=== PATIENT | female | born 1940 | race Caucasian/White ===

== ENCOUNTER 2016-09-27 06:16 | Inpatient (IN) | payer OTHER ==
[~2016-09-27] VITALS: Ht 154.9 cm; Wt 57.2 kg
[~2016-09-27 06:16] MED LIST: ATIVAN0.5 MG PO; CYCLOBENZAPRINE10 M1 PO; DELTASONE20 MG PO
--- NOTE | 2016-09-27 10:06 | Operative Report ---
Operative/Inv Procedure Report Surgery Date: 09/27/16 Name of Procedure: Right total hip arthroplasty Pre-Operative Diagnosis: Primary right hip osteoarthritis Protrusio right hip Post-Operative Diagnosis: Same Estimated Blood Loss: 50ml to 100ml Surgeon/Claim Professional: FARNAZ HINKLE,Christofer JACKSON Anesthesia: general endotracheal tube Implants: [place] secure fit size 7 femur with a 132 neck angle 52 acetabulum [place] 36-2.5 femoral head metal Drains: None Specimens: Femoral head and acetabular reamings Microbiology: Urine Complications: None Condition: Stable Operative Indication: Patient is a 76-year-old woman with worsening right hip and right lower extremity pain. By exam and x-rays, patient had severe osteoarthritis of her right hip but also severe osteoarthritis of the right knee. Patient did have some overlapping symptoms. Patient wished to proceed with total hip arthroplasty after discussion. Patient understands that there may be need for a right total knee arthroplasty in the future if she does not experience enough relief of her referred pain from her right total hip arthroplasty. We discussed risks, benefits and expectations of surgical procedure including but not limited to persistent hip pain, need for subsequent surgery, infection, DVT, dislocation , injury to blood vessel or nerve, anesthesia risks, leg length discrepancy. Patient wished to proceed with total hip arthroplasty Operative/Procedure Note Note: Patient was brought to the operating room and transferred to the operating table. Once under appropriate anesthesia the patient was placed in the left lateral decubitus position with right side up. All bony prominences well- padded. Axillary roll was placed. The right lower extremity was prepped and draped in standard fashion. Preoperative IV antibiotics were given prophylactically. A standard lateral incision was made for anticipated superior approach to the hip. The incision was taken down sharply to the underlying fascia. The fascia was incised in line with the skin incision. The hip was internally rotated. The piriformis was located and dissected off the posterior capsule and reflected. The interval between the gluteus minimus tendon and the superior capsule was identified and a retractor was placed in this interval. An inferior retractor was placed as well. A central portion of the posterior capsule was incised and reflected posteriorly. Inferior and superior portions were excised. Hip was dislocated. There was severe end-stage degenerative changes and eburnated bone of the right femoral head. The femoral neck cut was made based on preoperative templating and intraoperative measurements. I was able to visualize the acetabulum. There was severe degenerative changes of the acetabular surface as well. 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 Osteophytes were excised. Remnants of the degenerative labrum were excised anteriorly. There was no remaining labrum posteriorly. I then prepared the acetabular fossa with reamers starting with a size 46 up to a size 51 for anticipated insertion of a size 52 acetabulum. After the last reamer was used I trialed a size 50. I was satisfied with the circumferential reaming. I then impacted the definitive size 52 acetabulum with excellent scratch fit. I placed 2 screws in the safe zone in standard fashion. Copious irrigation followed I then impacted the definitive liner for this 36 [place] femoral head. The locking mechanism was confirmed. I then turned my attention to the femur. The right lower external he was internally rotated 90 and flexed about 60. Retractors were placed and then I did lateralize my insertion site with a box osteotome. Hand reamers up to a size 7. Broached to a size 7. I did a trial with a size [address] with the 127 and 132 neck angle. Patient did have a preoperative flexion contracture and her anatomy match the 132 neck angle more properly. I did use a minus 2.5 femoral neck. I was satisfied with the stability with all the trials. I elected to use the 132 neck degrees neck angle and the -2.5 femoral head. I removed all trial components. Copious irrigation of the femoral canal followed. I then placed the definitive size 7 secure fit femoral stem in place with the 132 neck angle. There was excellent scratch fit. I was satisfied with the 36 mm -2.5 femoral head. The trunnion was dried and I placed the definitive femoral head in place. The locking mechanism was confirmed. I reduced the hip. I was satisfied with the stability in all planes. Rastafari of the length. No evidence of posterior stability with simultaneous internal rotation adduction and flexion to greater than 90. No evidence of anterior instability with simultaneous extension and external rotation. Copious irrigation followed and copious irrigation followed every level of closure. The posterior capsule and piriformis were repaired. The fascia was closed with interrupted #1 Vicryl suture. Subcutaneous tissue was closed with 2-0 Vicryl in 2 layers and skin was closed with a ramesh. Appropriate dressings were applied and patient was awakened and taken the recovery room in good condition. Blood loss was approximately 100 mL. No intraoperative complications Discharge Disposition: PACU
--- NOTE | 2016-09-27 10:38 | RADIOLOGY REPORT ---
EXAMINATION: XR HIP, RIGHT CLINICAL INFORMATION: Status post right total hip arthroplasty. COMPARISON: None TECHNIQUE: A single portable AP view of the right hip is acquired. FINDINGS: Right total hip arthroplasty hardware is in place with a single acetabular fixation screw. The hardware is in satisfactory position. There is no evidence of periprosthetic lucencies to suggest fracture. Expected postsurgical changes with soft tissue edema and soft tissue air are seen. Cutaneous ramesh are noted projecting over the right lateral gluteal region. IMPRESSION: Expected postsurgical changes of right total hip replacement; the hardware is in satisfactory position.
[2016-09-27 12:36] VITALS: BP 11/58
--- NOTE | 2016-09-27 12:46 | Cons- Medical ---
ROSSY KING 09/27/16 1239: General Information and HPI Consulting Request Date of Consult: 09/27/16 Requested By: FARNAZ HINKLE,MANUEL Reason for Consult: Follow-up medical issues Source of Information: patient, family Exam Limitations: no limitations History of Present Illness: She is 76-year-old woman with past medical history of Powell's esophagus, diverticulosis, hemorrhoids, osteoarthritis, hypertension not on any antihypertensive, hyperlipidemia, anxiety and urinary incontinence with recurrent UTIs in past. She is status post right total hip arthroplasty by Dr. Mccurdy today. She is hard of hearing and most of history was obtained from her . Postoperatively she is feeling dizzy and complaining of mild pain in her right hip but denies any nausea, chest pain or discomfort, breathing difficulty, abdominal pain. Her preop blood work was done on 09/06/2069. CBC, BEP is normal except UA looks infected. According to she was prescribed with ciprofloxacin by PCP, Dr. Carroll, that she took it only for 2-3 days because her symptoms resolved. She is allergic to aspirin and NSAIDs. There is no history of smoking, alcohol or illicit drug use. She has 2 kids. She is retired. Lives with in [place]. Independent for activities of daily living. Allergies/Medications Allergies: Coded Allergies: aspirin (PASSES OUT 09/20/16) Home Med List: Lorazepam (Ativan) 0.5 MG TAB 1 TAB PO TID ANXIETY/SLEEP (Reported) Current Medications: Current Medications Sig/Leeanne Start time Last Medication Dose Route Stop Time Status Admin Al Hydroxide/Mg 30 ML Q6P PRN 09/27 1130 AC Hydroxide PO Apixaban 2.5 MG BID 09/28 1000 AC PO Dextrose/Lactated 1,000 ML Q13H 09/27 1130 AC Ringer's IV Docusate Sodium 100 MG DAILY NEEDED PRN 09/27 1130 AC PO Lorazepam 0.5 MG DAILY PRN 09/27 1000 AC PO 10/04 0959 Morphine Sulfate 2 MG Q3P PRN 09/27 1130 AC IV Morphine Sulfate 4 MG Q3P PRN 09/27 1130 AC IV Ondansetron HCl 4 MG Q6P PRN 09/27 1130 AC IV Oxycodone/ 1 TAB Q4P PRN 09/27 1130 AC Acetaminophen PO Oxycodone/ 2 TAB Q4P PRN 09/27 1130 AC Acetaminophen PO Polyethylene Glycol 17 GM DAILY NEEDED PRN 09/27 1130 AC PO Senna/Docusate Sodium 2 TAB AT BEDTIME NEED.. 09/27 1130 AC PO Vancomycin HCl 1,000 MG ONCE ONE 09/27 1900 AC Dextrose/Water 250 ML IV 09/27 1959 Vancomycin HCl 1,000 MG ONCE 09/27 0000 DC Sodium Chloride 250 ML IV 09/27 2359 Review of Systems Review of Systems Constitutional: Reports: see HPI. Past History Medical History Blood Transfusion Hx: No Neurological: migraine EENT: hearing loss, CATERACTS Cardiovascular: NONE Respiratory: NONE Gastrointestinal: NONE Hepatic: NONE Renal: NONE Musculoskeletal: osteoarthritis Psychiatric: anxiety Endocrine: NONE Blood Disorders: NONE Cancer(s): NONE FINANCIAL MANAGER/Reproductive: NONE Surgical History Surgical History: hernia repair-inguinal, hysterectomy, knee replacement (left), tubal ligation, bladder suspension, right rotator cuff repair Psychosocial History Smoking Status: Never Smoked Functional Ability ADLs Independent: dressing, eating, toileting, bathing. Ambulation: independent IADLs Independent: shopping, housework, finances, food prep, telephone, medication admin. Needs Assist: transportation. Employment History Employment: Retired Exam & Diagnostic Data Last 24 Hrs of Vital Signs/I&O Vital Signs Date Time Temp Pulse Resp B/P Pulse O2 O2 Flow FiO2 Ox Delivery Rate 09/27 1236 97.8 60 20 11/ 92 Room Air Intake & Output 09/27 1600 09/27 0800 09/27 0000 Intake Total Output Total Balance Patient 126 lb Weight Physical Exam General Appearance: no apparent distress, alert, awake, comfortable Head: normal appearance Eyes: Bilateral: normal appearance. Neck: supple Respiratory: normal breath sounds, chest non-tender, no respiratory distress, lungs clear Cardiovascular: regular rate/rhythm Peripheral Pulses: 2+ tibialis posterior (R), 2+ tibialis posterior (L), 2+ dorsalis pedis (R), 2+ dorsalis pedis (L) Gastrointestinal: normal bowel sounds, soft, non-tender Back: normal inspection Extremities: no edema, right hip bandage intact. lower ext sensations intact. pulses palpable Last 24 Hrs of Labs/Tim: No blood work was done in this 24 hours Assessment/Plan Assessment/Plan She is 76-year-old woman with past medical history of Powell's esophagus, diverticulosis, hemorrhoids, osteoarthritis, hypertension not on any antihypertensive, hyperlipidemia, anxiety and urinary incontinence with recurrent UTIs in past. She is status post right total hip arthroplasty by Dr. Mccurdy today. She was given vancomycin 1 preoperatively. Her vitals are stable. Temperature is 97.8, heart rate 60, blood pressure 110/ 58 and oxygen saturation 92% on room air. She has been started on pain medications, bowel regimen and DVT prophylaxis. Recommendations Monitor her vitals closely. Please repeat all her labs including CBC, BEP and UA. Urine culture for today is already pending. Continue Ativan for anxiety. Continue her pain management, bowel regimen and DVT prophylaxis. Physical therapy evaluation and treatment. has already booked her spot at [facility] after discharge. She is full code. POA is . Consult Acknowledgment - Thank you for your consult request. KODAK LUQUE MD 09/27/16 5563: Assessment/Plan Consult Acknowledgment - Thank you for your consult request. Attending MD Review Statement Attending Statement Attending MD Statement: examined this patient, discuss w/resident/PA/YOUTH PASTOR, agreed w/resident/PA/YOUTH PASTOR, discussed with family, reviewed EMR data (avail), discussed with nursing, amended to note Attending Assessment/Plan: The patient is a 76 yo female with h/o Powell's esophagus, HTN (not on meds), HL, anxiety, and recurrent UTI's in the past who was admitted to [facility] to the orthopedic service after elective right hip arthroplasty for osteoarthritis. Pre-operative evaluation indicated some pyuria and the patient was empirically treated with Cipro x 3 days by PCP (no culture in system). She has a h/of prior knee arthroplasty. At the time of my exam the patient was post op and complained of some mild hip pain (being treated). She denied fever, dyspnea, chest pain, abdominal pain, etc. Physical Exam: VS: T 97, P 60, BP 114/58, R 20, PO 92% RA HEENT: eyes- PERRLA, EOMI camilla- moist mucosa Neck: no bruits or JVD Chest: clear Cor: RRR, nl S1, S2 w/o murm Abd: BS+, soft, NT Ext: dressing on right hip, no edema, pulses 2+ Neuro: alert & oriented x 3, non-focal exam Labs/Tests- as above Impression/Plan: #H/O UTI- patient had pyuria preop with some mild dysuria. Was treated with 3 days of oral Cipro and symptoms resolved. Received 1 dose of IV Vanco preop as per hip arthroplasty protocol. Plan: Agree with re-check U/A & C&S. #S/P Right Hip Artrhroplasty- for OA. Doing well clinically. Plan: As per orthopedics. Eliquis being used for DVT prophylaxis. #H/O HTN- was not on medication. BP good at present. Plan: Will follow BP. #Anxiety- on Lorazepam prn. Plan: Continue Lorazepam prn.
--- NOTE | 2016-09-27 13:08 | PN- Orthopedic ---
Subjective Subjective: Awake, seems slightly confused about where she is but is aware of surgery and oriented to person. No specific complaints, ambulated already with PT - wbat - with a rolling walker Pain controlled Objective Vital Signs and I&Os Vital Signs Date Time Temp Pulse Resp B/P Pulse O2 O2 Flow FiO2 Ox Delivery Rate 09/27 1236 97.8 60 20 11/58 92 Room Air Intake & Output 09/27 1600 09/27 0800 09/27 0000 09/26 1600 09/26 0800 09/26 0000 Intake Total Output Total Balance Patient 126 lb Weight Physical Exam: afebrile, vss banerjee output - good General: oriented to person and time, ?baseline, pt was a poor historian pre op and required to answer questions Chest: clear anteriorly bilaterally, RRR Abd: soft, good bs Ext: warm, no edema, no calf tenderness, positive sensate Wound: dressed, dry Assessment/Plan Assessment/Plan 76 yo female s/p R THR PT - wbat eliquis for dvt ppx home meds restarted Hospitalist consulted - I spoke to resident. Recommendations appreciated. Will fu labs in am Pt had pre op UTI for which she was being treated - now has had vanco for andres op. Will follow up urine culture which was performed due to banerjee placement. Plan for rehab 2-3 days Core Measures/Miscellaneous Banerjee Catheter Date In: 09/27/16 Still Needed? Yes (24 hrs post op) Venous Thromboembolism VTE Risk Factors: Age > 40, Surgery VTE Contraindications: No Contraindications VTE Prophylaxis Ordered Inpt: Mech & Pharm VTE Diagnosis: No Beta Elisa Is Beta Elisa a Home Med? No Antibiotics Is Patient on Antibiotics? Yes If Yes: prophylaxis (24 hrs post op)
[2016-09-27 14:27] VITALS: BP 114/70
[2016-09-27 16:07] VITALS: BP 100/60
[2016-09-27 18:21] VITALS: BP 122/80
[2016-09-27 22:12] VITALS: BP 92/60
[2016-09-28 02:13] VITALS: BP 120/68
[2016-09-28 06:44] VITALS: BP 114/68
--- NOTE | 2016-09-28 08:54 | PN- Orthopedic ---
Subjective Subjective: Has multiple complaints. "The water tastes strange", "my throat hurts", "my head hurts", "my hip hurts", "my knee hurts", "my foot hurts". Each report has a story. Tolerating coffee. Has already requested that her banerjee stay in until she gets out of bed with PT this morning. Currently reporting some dizziness while resting in bed. No shortness of breath. No chest pains. She requested her athrombic pumps to be removed. Objective Vital Signs and I&Os Vital Signs Date Time Temp Pulse Resp B/P Pulse O2 O2 Flow FiO2 Ox Delivery Rate 09/28 0644 98.2 71 18 114/68 95 Room Air 09/28 0213 98.5 87 18 120/68 96 Room Air 09/27 2212 98.3 78 20 92/60 96 Room Air 09/27 1821 98.3 66 20 122/80 97 Room Air 09/27 1607 97.4 58 20 100/60 97 Room Air / 1427 98.2 56 18 114/70 95 Room Air 09/27 1236 97.8 60 20 11/58 92 Room Air Intake & Output 09/28 1600 02/ 0800 02/ 0000 / 1600 09/27 0800 02/ 0000 Intake Total 650 700 705 Output Total 900 200 400 Balance -250 500 305 Intake, IV 600 300 225 Intake, Oral 50 400 480 Number 0 Bowel Movements Output, Urine 900 200 400 Patient 126 lb Weight Physical Exam: General - alert & oriented. comfortable. no acute distress. Lungs - clear bilaterally. no w/r/r. Cardiac - s1s2. reg. Abdomen - soft. nontender. - banerjee draining clear, yellow urine. Extremities - warm bilaterally. right hip dressing c/d/i. hip pillow in place. nvi. calves soft and nontender b/l. Assessment/Plan Assessment/Plan This 76 year old white female with past medical history of Powell's esophagus, diverticulosis, hemorrhoids, osteoarthritis, hypertension not on any antihypertensive, hyperlipidemia, anxiety and urinary incontinence with recurrent UTIs and remote hx UTI is POD#1 s/p R THR advance diet as tolerated. d/c iv fluids pain control as ordered dressing change tomorrow, POD#2 PT - wbat eliquis for dvt ppx home meds restarted f/u u/a and urine cx. d/c banerjee catheter this morning andres-operative antibiotics complete f/u hospitalist recommendations d/c planning for str will d/w Core Measures/Miscellaneous Banerjee Catheter Date In: 09/27/16 Venous Thromboembolism VTE Risk Factors: Age > 40, Surgery VTE Contraindications: No Contraindications VTE Prophylaxis Ordered Inpt: Mech & Pharm VTE Diagnosis: No Beta Elisa Is Beta Elisa a Home Med? No Antibiotics Is Patient on Antibiotics? Yes If Yes: prophylaxis (24 hrs post op)
[2016-09-28 09:13] LABS: ABSOLUTE BASOPHIL COUNT 0 /CUMM (0.0-0.2); ABSOLUTE EOSINOPHIL COUNT 0 /CUMM (0.0-0.7); ABSOLUTE GRANULOCYTE CT 7.4 /CUMM (1.4-6.5); ABSOLUTE LYMPH COUNT 1.4 /CUMM (1.2-3.4); ABSOLUTE MONOCYTE COUNT 0.7 /CUMM (0.10-0.60); BASOPHIL % 0.1 % (0.0-2.0); EOSINOPHIL % 0.1 % (0-5); GRANULOCYTE % 77.2 % (42.2-75.2); HEMATOCRIT 32.5 % (37-47); MEAN CORPUSCULAR HGB 30.8 PG (27.0-31.0); MEAN CORPUSCULAR HGB CONC 33.3 G/DL (33.0-37.0); MEAN CORPUSCULAR VOLUME 92.6 FL (81.0-99.0); MEAN PLATELET VOLUME 8.3 FL (7.4-10.4); PLATELET COUNT 180 /CUMM (130-400); RBC DISTRIBUTION WIDTH 13.9 % (11.5-14.5); WHITE BLOOD CELL COUNT 9.6 /CUMM (4.8-10.8)
[2016-09-28 10:10] VITALS: BP 120/70
--- NOTE | 2016-09-28 10:46 | PN- Medicine Consult ---
ROSSY KING 09/28/16 1046: Assessment/Plan Assessment/Plan Assessment: She is 76-year-old woman with past medical history of Powell's esophagus, diverticulosis, hemorrhoids, osteoarthritis, hypertension not on any antihypertensive, hyperlipidemia, anxiety and urinary incontinence with recurrent UTIs in past. She is status post right total hip arthroplasty by Dr. Mccurdy. Problem list 1. Status post right total hip arthroplasty. Postop day #1 2. Acute surgical blood loss anemia. H&H 10.8/32.5 today. H&H was 15.1/45.7 preoperatively on September 06. No signs of active bleeding. no hematoma at site of surgery. most likely postoperatively. 3. History of recurrent UTIs. Chicas catheter has been removed this morning. UA is showing urine WBCs 5-10 with negative urine leukocyte esterase and nitrite. Urine culture no growth to date. 4. Constipation Recommendations Continue surgical management. Check CBC tomorrow morning. Follow off antibiotics. Continue pain management and bowel regimen. Continue DVT prophylaxis with Eliquis. Discharge plan to [facility]. Continue physical therapy. Plan: as above Subjective Subjective: No overnight events. This morning patient is alert, awake and oriented. She is hemodynamically stable. She is complaining of generalized pain and mostly in her right hip. She is also complaining of pain in her throat. Denies any cough , breathing difficulty, chest pain or discomfort. She has been seen by physical therapy and working with them. Reports constipation. Eating drinking well. Review of Systems Constitutional: Reports: see HPI. Objective Last 24 Hrs of Vital Signs/I&O Vital Signs Date Time Temp Pulse Resp B/P Pulse O2 O2 Flow FiO2 Ox Delivery Rate 09/28 1010 98.0 87 18 120/70 96 Room Air 09/28 0644 98.2 71 18 114/68 95 Room Air 09/28 0213 98.5 87 18 120/68 96 Room Air 09/27 2212 98.3 78 20 92/60 96 Room Air 09/27 1821 98.3 66 20 122/80 97 Room Air 09/27 1607 97.4 58 20 100/60 97 Room Air 09/27 1427 98.2 56 18 114/70 95 Room Air 09/27 1236 97.8 60 20 11/58 92 Room Air Intake & Output 09/28 1600 09/28 0800 09/28 0000 Intake Total 650 700 Output Total 900 200 Balance -250 500 Intake, IV 600 300 Intake, Oral 50 400 Number 0 Bowel Movements Output, Urine 900 200 Physical Exam General Appearance: no apparent distress, alert, awake, anxious Neck: supple Cardiovascular: regular rate/rhythm Respiratory: normal breath sounds, lungs clear Abdomen: normal bowel sounds, soft, non-tender Extremities: right hip bandage intact. Bilateral lower extremity sensations intact palpable pulses. Current Medications: Current Medications Sig/Leeanne Start time Last Medication Dose Route Stop Time Status Admin Al Hydroxide/Mg 30 ML Q6P PRN 09/27 1130 AC Hydroxide PO Apixaban 2.5 MG BID 09/28 1000 AC 09/28 PO 1035 Benzocaine/Menthol 1 HEATHER Q2P PRN 09/28 1030 AC PO Dextrose/Lactated 1,000 ML Q13H 09/27 1130 DC 09/28 Ringer's IV 0100 Docusate Sodium 100 MG BID 09/27 2200 AC 09/28 PO 1035 Docusate Sodium 100 MG DAILY NEEDED PRN 09/27 1130 DC PO Lorazepam 0.5 MG DAILY PRN 09/27 1000 AC 09/27 PO 10/04 0959 1959 Morphine Sulfate 2 MG Q3P PRN 09/27 1130 AC 09/27 IV 1956 Morphine Sulfate 4 MG Q3P PRN 09/27 1130 AC 09/28 IV 0630 Ondansetron HCl 4 MG Q6P PRN 09/27 1130 AC IV Oxycodone/ 1 TAB Q4P PRN 09/27 1130 AC Acetaminophen PO Oxycodone/ 2 TAB Q4P PRN 09/27 1130 AC 09/28 Acetaminophen PO 1034 Patient Medication 1 ED .STK-MED ONE 09/27 1405 [facility] 09/27 1406 Polyethylene Glycol 17 GM DAILY 09/28 1000 AC 09/28 PO 1035 Polyethylene Glycol 17 GM DAILY NEEDED PRN 09/27 1130 DC PO Senna/Docusate Sodium 2 TAB AT BEDTIME NEED.. 09/27 1130 AC PO Vancomycin HCl 1,000 MG ONCE ONE 09/27 1900 DC 09/27 Dextrose/Water 250 ML IV 09/27 1959 1909 Vancomycin HCl 1,000 MG ONCE 09/27 0000 DC Sodium Chloride 250 ML IV 09/27 2359 Results Last 24 Hrs Lab/Tim Results: Laboratory Tests 09/28/16 0827: Urinalysis LIGHT H, Urine Color YEL, Urine Clarity CLEAR, Urine pH 6.0, Ur Specific [place] 1.025, Urine Protein NEG, Urine Ketones NEG, Urine Nitrite NEG, Urine Bilirubin NEG, Urine Urobilinogen 0.2, Ur Leukocyte Esterase NEG, Ur Microscopic SEDIMENT EXAMINED, Urine RBC 5-10 H, Urine WBC 5-10 H, Ur Epithelial Cells RARE, Hyaline Casts RARE H, Urine Mucus MANY H, Urine Hemoglobin SMALL H, Urine Glucose NEG 09/28/16 0815: Anion Gap 5, Estimated GFR > 60, BUN/Creatinine Ratio 25.0, CBC w Diff NO MAN DIFF REQ, RBC 3.50 L, MCV 92.6, MCH 30.8, RDW 13.9, MPV 8.3, Gran % 77.2 H, Lymphocytes % 14.8 L, Monocytes % 7.8, Eosinophils % 0.1, Basophils % 0.1, Absolute Granulocytes 7.4 H, Absolute Lymphocytes 1.4, Absolute Monocytes 0.7 H, Absolute Eosinophils 0, Absolute Basophils 0, PUBS MCHC 33.3 KODAK LUQUE MD 09/28/16 1255: Assessment/Plan Assessment/Plan Plan: as above Attending MD Review Statement Attending Sign Off Attending Cosign Statement: I have: examined this patient, amended to note. Other Findings: The patient was seen and discussed with resident. Agree with plan of care. Chlorseptic lozenges for throat discomfort.
[2016-09-28 13:38] VITALS: BP 108/60
[2016-09-28 22:57] VITALS: BP 94/58
[2016-09-29 06:16] VITALS: BP 148/80
--- NOTE | 2016-09-29 06:53 | NUR ---
0600 OOB TO BR WITH ASSIST OF 1 & RW.C/O FEELING SHE IS GOING TO PASS OUT.ABLE TO WALK BACK TO BED BUT WANTS TO SIT UP IN TAM-CHAIR.CONTINUES TO C/O ABOUT PASSING OUT.B/P 116/66,P-ST(99-106).REPORTED TO PA.PERCOCET 2 TABS AND ATIVAN 0.5MG PO GIVEN. 0630 PT REMAINS IN TAM-CHAIR.STILL ANXIOUS & IN PAIN.
--- NOTE | 2016-09-29 07:10 | PN- General Surgery ---
WILIAM CHRISTENSEN PA-C 09/29/16 0704: Subjective Subjective: 76 YO female, post op day #2 sp R PACHECO. She has moderate pain in the R hip, radiating down the R leg to the foot. Pain medication helps. No fever, no vomiting. she is feeling "lightheaded" as she was yesterday as well. no CP, on sob, on eliquis. Medicine following. VSS. Objective Vital Signs and I&Os Vital Signs Date Time Temp Pulse Resp B/P Pulse O2 O2 Flow FiO2 Ox Delivery Rate 09/29 0616 98.6 71 18 148/80 94 Room Air 09/28 2257 98.0 77 18 94/58 95 Room Air 09/28 1338 97.8 67 20 108/60 96 Room Air 09/28 1010 98.0 87 18 120/70 96 Room Air Intake & Output 09/29 0800 09/29 0000 09/28 1600 09/28 0800 02/ 0000 / 1600 Intake Total 600 600 650 700 705 Output Total 450 250 900 200 400 Balance 150 350 -250 500 305 Intake, IV 600 300 225 Intake, Oral 600 600 50 400 480 Number 0 Bowel Movements Output, Urine 450 250 900 200 400 Patient 126 lb Weight Physical Exam: WDWN AOx3 , KAW HEENT- wnl Heart- RRR no murmurs Lungs_ CTA B Abd- soft , nt, nd Neuro-MOLINA RLE- dressing changed, c/d/i, no discharge/drainage. mild swelling R lateral hip. no erythema. NVI dressing changed- dsd B no calf pain or tenderness Assessment/Plan Assessment/Plan This 76 year old white female with past medical history of Powell's esophagus, diverticulosis, hemorrhoids, osteoarthritis, hypertension not on any antihypertensive, hyperlipidemia, anxiety and urinary incontinence with recurrent UTIs and remote hx UTI is POD#2 s/p R THR advance diet as tolerated. d/c iv fluids pain control as ordered PT - wbat eliquis for dvt ppx home meds restarted f/u u/a and urine cx. f/u hospitalist recommendations, monitor dizziness d/c planning for str , hopefully tomorrow will d/w Core Measures/Miscellaneous Chicas Catheter Date In: 09/27/16 Venous Thromboembolism VTE Risk Factors: Age > 40, Surgery VTE Contraindications: No Contraindications VTE Prophylaxis Ordered Inpt Mech & Pharm VTE Diagnosis: No Beta Elisa Is Beta Elisa a Home Med? No Antibiotics Is Patient on Antibiotics? Yes If Yes: prophylaxis (24 hrs post op)
[2016-09-29 08:30] VITALS: BP 110/72
--- NOTE | 2016-09-29 08:32 | NUR ---
PT C/O OF FEELING LIKE SHE "IS GOING TO PASS OUT". BP 110/68, PULSE 88, O2 97% ROOM AIR, PAIN 8/10 IN RIGHT HIP. PT REFUSED ORTHOSTATIC VITAL SIGNS, REFUSED TO MOVE FROM CHAIR TO BED, REFUSED TO ELEVATE LEGS IN RECLINER CHAIR, REFUSED FOOD AND DRINK. GAVE PT IV MORPHINE FOR PAIN IN RIGHT HIP, WILL CONTINUE TO MONITOR.
--- NOTE | 2016-09-29 08:53 | NUR ---
SURGICAL PA CALLED REGARDING PT STILL HAVING FEELING LIKE SHE IS GOING TO PASS OUT. SURGICAL PA SAID SHE WAS AWARE OF THIS EARLIER AND TO [facility]. PAGED MOD AND WAS TOLD TO CALL SURGICAL THIS WASN'T A MEDICAL PATIENT. EXPLAINED TO MOD THAT THIS RN HAS ALREADY CALLED SURGERY AND THAT THEY SAID TO [facility]. WAS TOLD BY MOD TO "GIVE PATIENT SOMETHING TO EAT". EXPLAINED TO MOD THAT PT REFUSED TO EAT, DRINK, GET INTO BED, OR ELEVATE LEGS. BLOOD SUGAR CHECKED, 105. MOD SAID THEY WOULD COME UP TO SEE PATIENT. WILL CONTINUE TO MONITOR.
--- NOTE | 2016-09-29 09:34 | NUR ---
PHYSICAL THERAPY: Attempted to see patient this A.M. Patient presenting with chest pain & feeling like she is going to pass out. Pt is currently being monitored by RN & Surgical PA aware. Defer treatment at this time until symptoms are stable and/or resolved. P.t. will f/u as appropriate this PM.
[2016-09-29 09:42] LABS: ABSOLUTE BASOPHIL COUNT 0 /CUMM (0.0-0.2); ABSOLUTE EOSINOPHIL COUNT 0 /CUMM (0.0-0.7); ABSOLUTE GRANULOCYTE CT 8.5 /CUMM (1.4-6.5); ABSOLUTE LYMPH COUNT 1.2 /CUMM (1.2-3.4); ABSOLUTE MONOCYTE COUNT 0.9 /CUMM (0.10-0.60); BASOPHIL % 0.3 % (0.0-2.0); EOSINOPHIL % 0.1 % (0-5); GRANULOCYTE % 79.9 % (42.2-75.2); HEMATOCRIT 37.3 % (37-47); MEAN CORPUSCULAR HGB CONC 33.6 G/DL (33.0-37.0); MEAN CORPUSCULAR VOLUME 92.3 FL (81.0-99.0); MEAN PLATELET VOLUME 8.1 FL (7.4-10.4); PLATELET COUNT 206 /CUMM (130-400); RBC DISTRIBUTION WIDTH 13.9 % (11.5-14.5); RED BLOOD CELL CT 4.05 /CUMM (4.20-5.40); WHITE BLOOD CELL COUNT 10.6 /CUMM (4.8-10.8)
--- NOTE | 2016-09-29 10:39 | PN- Medicine Consult ---
ROSSY KING 09/29/16 1029: Assessment/Plan Assessment/Plan Assessment: She is 76-year-old woman with past medical history of Powell's esophagus, diverticulosis, hemorrhoids, osteoarthritis, hypertension not on any antihypertensive, hyperlipidemia, anxiety and urinary incontinence with recurrent UTIs in past. She is status post right total hip arthroplasty by Dr. Mccurdy. Patient is having severe anxiety this morning. Her vitals are stable and blood sugar is 105. She got her morning dose of 0.5 mg Ativan at 5 AM. Because of severe anxiety she was given 1 mg of Ativan again at 10 AM. As she was complaining of dizziness/lightheadedness and chest discomfort so stat EKG and troponin were done. EKG is normal without any ST-T wave changes and troponins are negative. Problem list 1. Status post right total hip arthroplasty. Postop day #2 2. Acute surgical blood loss anemia. H&H was 10.8/32.5 yesterday. Today H&H is 12.5/37.3. 3. History of recurrent UTIs. Patient is complaining of urinary frequency but denies any pain or burning upon micturition. Urine culture is negative to date. 4. Constipation 5. Severe anxiety/panic attack Recommendations Continue surgical management. Follow off antibiotics. We will start her on her home dose of Ativan, 0.5 mg 3 times a day for severe anxiety. Continue pain management and bowel regimen. Continue DVT prophylaxis with Eliquis. Discharge plan to [facility]. Continue physical therapy. Plan: as above Subjective Subjective: No overnight events. This morning patient is complaining of dizziness and feeling as if she is going to pass out. She is also complaining of throat pain and chest discomfort. Also reports pain in her right hip. She is refusing to eat her breakfast. She is also complaining of urinary frequency but denies any pain or burning on micturition. Review of Systems Constitutional: Reports: see HPI. Objective Last 24 Hrs of Vital Signs/I&O Vital Signs Date Time Temp Pulse Resp B/P Pulse O2 O2 Flow FiO2 Ox Delivery Rate 09/29 1013 Room Air 09/29 0616 98.6 71 18 148/80 94 Room Air 09/29 0000 95 Room Air 09/28 2257 98.0 77 18 94/58 95 Room Air 09/28 1338 97.8 67 20 108/60 96 Room Air Intake & Output 09/29 1600 09/29 0800 09/29 0000 Intake Total 100 600 Output Total 300 450 Balance -200 150 Intake, IV 0 Intake, Oral 100 600 Number 0 Bowel Movements Output, Urine 300 450 Physical Exam General Appearance: alert, awake, anxious Neck: supple Cardiovascular: regular rate/rhythm Respiratory: normal breath sounds, chest non-tender, lungs clear Abdomen: normal bowel sounds, soft, non-tender Extremities: right hip dressing intact. mild swelling Neurologic/Psychiatric: no motor/sensory deficits, awake, alert, oriented x 3 Current Medications: Current Medications Sig/Leeanne Start time Last Medication Dose Route Stop Time Status Admin Al Hydroxide/Mg 30 ML Q6P PRN 09/27 1130 AC Hydroxide PO Apixaban 2.5 MG BID 09/28 1000 AC 09/29 PO 1025 Benzocaine/Menthol 1 HEATHER Q2P PRN 09/28 1030 AC 09/29 PO 1030 Docusate Sodium 100 MG BID 09/27 2200 AC 09/29 PO 1025 Lorazepam 0.5 MG TID 09/29 1000 AC PO 10/06 0959 Lorazepam 1 MG ONE ONE 09/29 0945 DC 09/29 PO 09/29 0946 1000 Lorazepam 0.5 MG DAILY PRN 09/27 1000 DC 09/29 PO 10/04 0959 0534 Morphine Sulfate 2 MG Q3P PRN 09/27 1130 AC 09/27 IV 1956 Morphine Sulfate 4 MG Q3P PRN 09/27 1130 AC 09/29 IV 0821 Ondansetron HCl 4 MG Q6P PRN 09/27 1130 AC IV Oxycodone/ 1 TAB Q4P PRN 09/27 1130 AC Acetaminophen PO Oxycodone/ 2 TAB Q4P PRN 09/27 1130 AC 09/29 Acetaminophen PO 0535 Polyethylene Glycol 17 GM DAILY 09/28 1000 AC 09/29 PO 1022 Senna/Docusate Sodium 2 TAB AT BEDTIME NEED.. 09/27 1130 AC PO Results Last 24 Hrs Lab/Tim Results: Laboratory Tests 09/29/16 0925: Troponin I 0.02, CBC w Diff NO MAN DIFF REQ, RBC 4.05 L, MCV 92.3, MCH 31.0, RDW 13.9, MPV 8.1, Gran % 79.9 H, Lymphocytes % 11.6 L, Monocytes % 8.1, Eosinophils % 0.1, Basophils % 0.3, Absolute Granulocytes 8.5 H, Absolute Lymphocytes 1.2, Absolute Monocytes 0.9 H, Absolute Eosinophils 0, Absolute Basophils 0, PUBS MCHC 33.6 KODAK LUQUE MD 09/29/162039: Attending MD Review Statement Attending Sign Off Attending Cosign Statement: I have: examined this patient, reviewed aval EMR data, discussd w/resident/PA/ FORM DESIGNER, agreed w/resident/PA/FORM DESIGNER, amended to note. Other Findings: The patient was seen and discussed with the resident. Agree with the plan of care as outlined.
[2016-09-29 14:00] VITALS: BP 110/62
--- NOTE | 2016-09-29 14:06 | NUR ---
PHYSICAL THERAPY: Attempted to see patient x3 times today; pt continues to ref P.T. treatment stating "I just cannot; I feel like I am going to faint, I am in pain." With encouragement and education, patient stated that she will trial "in a little bit when I need to use the bathroom." PT to f/u as appropriate.
[2016-09-29] MEDS ORDERED: ELIQUIS2.5 M1 PO (15:43)
[2016-09-29] MEDS ORDERED: SENNA8.6 M3 PO (15:43)
[2016-09-29] MEDS ORDERED: COLACE100 M1 PO (15:43)
[2016-09-29] MEDS ORDERED: PERCOCET 5-3251 EACH PO (15:43)
--- NOTE | 2016-09-29 15:51 | Patient Discharge Instructions ---
Discharge Instructions General Discharge Information You were seen/treated for: Tommy unilateral R hip osteoarthritis You had these procedures: R total hip replacement Watch for these problems: Redness, swelling, discharge from the wound, fever of 101, shortness of breath or chest pain Worsening pain in the right hip or difficulty walking No bath, but you may shower: Yes Other wound care: Daily dry dressing changes [place] should be removed postop day #15 and Steri-Strips applied Special Instructions: See printed information packet. Total hip precautions as discussed Diet Continue normal diet: Yes Activity Activity Self Limited: Yes Other activity limits: Ambulate with walker as per physical therapy. Total hip precautions in place at all times Acute Coronary Syndrome Inclusion Criteria At DC or during hospital stay patient has or had the following: ACS DIAGNOSIS No Discharge Core Measures Meds if any: Prescribed or Continued at Discharge Meds if any: NOT Prescribed or Continued at Discharge Congestive Heart Failure Inclusion Criteria At DC or during hospital stay patient has or had the following: CHF DIAGNOSIS No Discharge Core Measures Meds if any: Prescribed or Continued at Discharge Meds if any: NOT Prescribed or Continued at Discharge Cerebrovascular accident Inclusion Criteria At DC or during hospital stay patient has or had the following: CVA/TIA Diagnosis No Discharge Core Measures Meds if any: Prescribed or Continued at Discharge Meds if any: NOT Prescribed or Continued at Discharge Venous thromboembolism Inclusion Criteria VTE Diagnosis No VTE Type NONE VTE Confirmed by (Test) NONE Discharge Core Measures - Per Current guidelines, there needs to be overlap - treatment for the first 5 days of Warfarin therapy. - If discharged on Warfarin prior to 5 days of - overlap therapy, the patient will need to be - assessed for post discharge needs including - *Post discharge parental anticoagulation - *Warfarin and/or parental anticoagulation education - *Follow up date to check INR post discharge At least 5 days overlap therapy as Inpatient No Meds if any: Prescribed or Continued at Discharge Note: Overlap Therapy is Warfarin and Anticoagulant Meds if any: NOT Prescribed or Continued at Discharge
--- NOTE | 2016-09-29 15:59 | Surgical Discharge Summary ---
Visit Information Visit Dates Admission Date: 09/27/16 Discharge Date: 09/30/2016 History of Present Illness Chief Complaint: See H&P Medical History Blood Transfusion Hx: No Neurological: migraine EENT: hearing loss, CATERACTS Cardiovascular: NONE Respiratory: NONE Gastrointestinal: NONE Hepatic: NONE Renal: NONE Musculoskeletal: osteoarthritis Psychiatric: anxiety Endocrine: NONE Blood Disorders: NONE Cancer(s): NONE PLUG STITCHER/Reproductive: NONE History of MRSA: No History of VRE: No History of CDIFF: No Isolation History: Standard Influenza Vaccine: 06/22/16 Surgical History Pertinent Surgical History: hernia repair-inguinal, hip replacement (right), hysterectomy, knee replacement (left), tubal ligation, bladder suspension right rotator cuff repair Psychosocial History Who Do You Live With? Spouse What is Your Primary Language? Andorran Review of Systems: See H&P Hospital Course Course Attending Physician: FARNAZ HINKLE,MANUEL Primary Care Physician: KIRK ESCOBEDO MD Hospital Course: This is 76-year-old female with long-standing history of right hip osteoarthritis who was seen and evaluated by Dr. bach and diagnosed with primary right hip osteoarthritis. She has failed conservative treatment was indicated for right total hip replacement. On 09/27 2016 patient underwent a right hip total hip arthroplasty that went without complications. On the floor patient was followed by the medical service, who postoperative course was uneventful, she received eliquis for DVT prophylaxis. She received vancomycin for infectious prophylaxis postoperatively. She was seen by physical therapy and was deemed unstable to be discharged home and requires residential facility for continued physical therapy and rehabilitation. Her laboratory values are stable, she is afebrile, her pain is controlled. Allergies: Coded Allergies: aspirin (PASSES OUT 09/20/16) Significant Procedures: Right total hip replacement Pertinent Lab Results: Acute blood loss anemia hematocrit dropped to 32. Disposition Summary Disposition Principal Diagnosis: Primary right hip osteoarthritis Additional Diagnosis: Status post right total hip arthroplasty. Acute blood loss anemia. Discharge Disposition: SNF Discharge Instructions General Discharge Information Code Status: Full Code Patient's Diet: Regular Patient's Activity: Weightbearing as tolerated with physical therapy, ambulatory with roller walker, total hip precautions in place Follow-Up Instructions/Appts: Follow-up with your orthopedic surgeon in 2-3 weeks. Watch for any signs of infection redness swelling discharge pain or fever greater than 101. Call your orthopedic surgeon with any concerns. Medications at Discharge Discharge Medications: Continue taking these medications: Lorazepam (Ativan) 0.5 MG TAB 1 Tablet ORAL THREE TIMES DAILY Qty = 90 Comments: PER PT Start taking the following new medications: Apixaban (Eliquis) 2.5 MG TABLET 1 Tablet ORAL TWICE DAILY Qty = 60 No Refills Oxycodone HCl/Acetaminophen (Percocet 5-325 MG Tablet) 5 MG-325 MG TABLET 1-2 Tablet ORAL EVERY 4-6 HOURS NEEDED as needed for pain Qty = 10 No Refills Docusate Sodium (Colace) 100 MG CAPSULE 1 Capsule ORAL TWICE DAILY Qty = 60 No Refills Sennosides (Senna) 8.6 MG TABLET 2 Tablet ORAL DAILY Qty = 60 No Refills
[2016-09-29 21:45] VITALS: BP 128/64
[2016-09-30 06:11] VITALS: BP 120/72
--- NOTE | 2016-09-30 07:15 | PN- Orthopedic ---
Subjective Subjective: The patient was seen this morning postoperatively day #3. He reports that her pain is under adequate control and had no other complaints at the current time. She denies any chest pain, difficulty breathing, or dizziness. Objective Vital Signs and I&Os Vital Signs Date Time Temp Pulse Resp B/P Pulse O2 O2 Flow FiO2 Ox Delivery Rate 09/30 610 98.3 96 18 120/72 97 Room Air 09/29 2145 98.2 98 18 128/64 96 Room Air 09/29 1400 98.1 105 20 110/62 97 Room Air 09/29 1146 Room Air 09/29 1013 Room Air 09/29 0830 97.8 90 22 110/72 98 Room Air Intake & Output 09/30 0809/30 0000 09/29 1600 09/29 0800 09/29 0000 09/28 1600 Intake Total 200 250 450 100 600 600 Output Total 500 500 300 450 250 Balance 200 -250 -50 -200 150 350 Intake, IV 0 Intake, Oral 200 250 450 100 600 600 Number 0 Bowel Movements Output, Urine 500 500 300 450 250 Physical Exam: Gen. alert and in no obvious distress Skin: Warm and dry Extremities: Bilateral lower extremities are warm without calf tenderness. Gross motor and sensory were intact. Right hip surgical dressing clean, dry, and intact without signs of infection. Assessment/Plan Assessment/Plan Assessment: 76-year-old female status post left total hip arthroplasty postoperative day #3. The patient is progressing as expected and her pain is under adequate control. Plan: Out of bed with physical therapy patient is weightbearing as tolerated Follow-up morning laboratory studies GI and DVT prophylaxis with Alps and Eliquis Continue current pain regiment Dulcolax suppository 1 this morning Discharge to short-term rehabilitation today Core Measures/Miscellaneous Chicas Catheter Date In: 09/27/16 Venous Thromboembolism VTE Risk Factors: Age > 40, Surgery VTE Contraindications: No Contraindications VTE Prophylaxis Ordered Inpt: Mech & Pharm VTE Diagnosis: No Beta Elisa Is Beta Elisa a Home Med? No Antibiotics Is Patient on Antibiotics? No
[2016-09-30 08:53] LABS: ABSOLUTE BASOPHIL COUNT 0 /CUMM (0.0-0.2); ABSOLUTE EOSINOPHIL COUNT 0.1 /CUMM (0.0-0.7); ABSOLUTE LYMPH COUNT 1.6 /CUMM (1.2-3.4); ABSOLUTE MONOCYTE COUNT 0.7 /CUMM (0.10-0.60); BASOPHIL % 0.4 % (0.0-2.0); EOSINOPHIL % 1.5 % (0-5); GRANULOCYTE % 70.5 % (42.2-75.2); MEAN CORPUSCULAR HGB CONC 33.4 G/DL (33.0-37.0); MEAN CORPUSCULAR VOLUME 92.9 FL (81.0-99.0); MEAN PLATELET VOLUME 8.9 FL (7.4-10.4); PLATELET COUNT 192 /CUMM (130-400); RBC DISTRIBUTION WIDTH 13.9 % (11.5-14.5); RED BLOOD CELL CT 3.48 /CUMM (4.20-5.40); WHITE BLOOD CELL COUNT 8.4 /CUMM (4.8-10.8)
[2016-09-30 09:31] LABS: HEMATOCRIT 32.3 % (37-47)
[2016-09-30 09:56] VITALS: BP 120/72
--- NOTE | 2016-09-30 13:06 | PN- Medicine Consult ---
Assessment/Plan Assessment/Plan Assessment: She is 76-year-old woman with past medical history of Powell's esophagus, diverticulosis, hemorrhoids, osteoarthritis, hypertension not on any antihypertensive, hyperlipidemia, anxiety and urinary incontinence with recurrent UTIs in past. She is status post right total hip arthroplasty by Dr. Mccurdy. Patient is having severe anxiety this morning. Her vitals are stable and blood sugar is 105. She got her morning dose of 0.5 mg Ativan at 5 AM. Because of severe anxiety she was given 1 mg of Ativan again at 10 AM. As she was complaining of dizziness/lightheadedness and chest discomfort so stat EKG and troponin were done. EKG is normal without any ST-T wave changes and troponins are negative. Problem list 1. Status post right total hip arthroplasty. Postop day 3 2. Acute surgical blood loss anemia. H&H was 12.5/37.3 yesterday and now 10.8/ 32.3 today (similar to 09/28). 3. History of recurrent UTIs. Patient is complaining of urinary frequency but denies any pain or burning upon micturition. Urine culture is negative. 4. Constipation 5. Severe anxiety/panic attack Recommendations Continue surgical management. Follow off antibiotics. Continue her home dose of Ativan, 0.5 mg 3 times a day for severe anxiety. Continue pain management and bowel regimen. Continue DVT prophylaxis with Eliquis. Discharge plan to [facility]- to go today. Continue physical therapy. Plan: as above Problem List: 1. Acute blood loss anemia 2. Chronic anxiety 3. Hip arthritis Subjective Subjective: The patient is packed and ready to go to short term rehab at [facility]. No c/ o. Review of Systems Constitutional: Denies: no symptoms. EENTM: Reports: no symptoms (IMPROVED/MILD), throat pain. Cardiovascular: Denies: no symptoms. Respiratory: Denies: no symptoms. Gastrointestinal: Denies: no symptoms. Genitourinary: Denies: no symptoms. Musculoskeletal: Reports: joint pain (S/P THR). Skin: Denies: no symptoms. Neurological/Psychological: Reports: anxiety (CHRONIC). Hematologic/Endocrine: Denies: no symptoms. Immunologic/Allergic: Denies: no symptoms. Objective Last 24 Hrs of Vital Signs/I&O Vital Signs Date Time Temp Pulse Resp B/P Pulse O2 O2 Flow FiO2 Ox Delivery Rate 09/30 0956 98.3 96 18 120/72 02/09 0611 98.3 96 18 120/72 97 Room Air 09/29 2145 98.2 98 18 128/64 96 Room Air 09/29 1400 98.1 105 20 110/62 97 Room Air Intake & Output 09/30 1600 09/30 0800 09/30 0000 Intake Total 200 250 Output Total 500 Balance 200 -250 Intake, Oral 200 250 Output, Urine 500 Physical Exam General Appearance: well developed/nourished, no apparent distress, alert, awake , anxious, comfortable Head: atraumatic Ears, Nose, Throat: normal pharynx Neck: normal inspection Cardiovascular: regular rate/rhythm Respiratory: normal breath sounds Abdomen: normal bowel sounds, soft, non-tender Extremities: no edema, S/P THR Neurologic/Psychiatric: no motor/sensory deficits, awake, alert, oriented x 3 Skin: intact Current Medications: Current Medications Sig/Leeanne Start time Last Medication Dose Route Stop Time Status Admin Al Hydroxide/Mg 30 ML Q6P PRN 09/27 1130 DCD Hydroxide PO Apixaban 2.5 MG BID 09/28 1000 DCD 09/30 PO 0801 Benzocaine/Menthol 1 HEATHER Q2P PRN 09/28 1030 DCD 09/29 PO 1030 Bisacodyl 10 MG ONCE ONE 09/30 0715 DC 09/30 TN 09/30 0716 0801 Docusate Sodium 100 MG BID 09/27 2200 DCD 09/30 PO 0804 Lorazepam 0.5 MG TID 09/29 1000 DCD 09/30 PO 10/06 0959 0859 Morphine Sulfate 2 MG Q3P PRN / 1130 DCD 02 IV 1956 Morphine Sulfate 4 MG Q3P PRN / 1130 DCD 09/29 IV 1814 Ondansetron HCl 4 MG Q6P PRN 09/27 1130 DCD IV Oxycodone/ 1 TAB Q4P PRN 09/27 1130 DCD Acetaminophen PO Oxycodone/ 2 TAB Q4P PRN / 1130 DCD 09/29 Acetaminophen PO 0535 Patient Medication 1 ED ONE ONE 09/29 1400 DC Teaching ED 09/29 1401 Polyethylene Glycol 17 GM DAILY 09/28 1000 DCD 09/30 PO 0802 Senna/Docusate Sodium 2 TAB AT BEDTIME NEED.. 09/27 1130 DCD PO Sodium Chloride 1,000 ML BOLUS ONE 09/29 1530 DC 09/29 IV 09/29 1629 1614 Results Last 24 Hrs Lab/Tim Results: Laboratory Tests 09/30/16 0630: Anion Gap 8, Estimated GFR > 60, BUN/Creatinine Ratio 18.3, CBC w Diff NO MAN DIFF REQ, RBC 3.48 L, MCV 92.9, MCH 31.0, RDW 13.9, MPV 8.9, Gran % 70.5, Lymphocytes % 18.9 L, Monocytes % 8.7, Eosinophils % 1.5, Basophils % 0.4, Absolute Granulocytes 6.0, Absolute Lymphocytes 1.6, Absolute Monocytes 0.7 H, Absolute Eosinophils 0.1, Absolute Basophils 0, PUBS MCHC 33.4 09/29/16 1451: Sodium Cancelled, Potassium Cancelled, Chloride Cancelled, Carbon Dioxide Cancelled, Anion Gap Cancelled, BUN Cancelled, Creatinine Cancelled, BUN/ Creatinine Ratio Cancelled Attending MD Review Statement Attending Sign Off Attending Cosign Statement: I have: examined this patient, amended to note. Other Findings: The patient was seen prior to her leaving for [facility].
== END 2016-09-30 10:08 | DRG 470 ==
LOC: ENRESERVDT → ENRESERVTM → ENPENDDIS 06:16 → 2NA 06:16 → SDA 06:16 → 2NA 11:25
PROVIDERS: Internal Medicine; Physician Assistant; Physician Assistant Surgical; ADMIT Orthopaedic Surgery
PROC: 0SR904A Replacement of Right Hip Joint with Ceramic on Polyethylene Synthetic Substitute, Uncemented, Open Approach (ICD-10-PCS; principal; 2016-09-27)
DX: M16.11 Unilateral primary osteoarthritis, right hip (principal); I10 Essential (primary) hypertension; M24.7 Protrusio acetabuli; K21.9 Gastro-esophageal reflux disease without esophagitis; E78.5 Hyperlipidemia, unspecified; K22.70 Barrett's esophagus without dysplasia; F41.9 Anxiety disorder, unspecified
CPT/HCPCS: 2NASP; 73501; 81001; 82436; 87086; 88304; 93005; 93010; 97110-GO; 97116-GO; 97161-GP; 97530-GO; J0171; J1100; J1170; J1885; J2250; J2405; J2795; J3010; J3370; J7040; J7060